=== PATIENT | female | born 1960 | race Caucasian/White ===

== ENCOUNTER 2017-06-17 16:33 | Emergency (ER) | payer BC ==
[2017-06-17 17:19] VITALS: BP 126/71
--- NOTE | 2017-06-17 18:19 | UC ---
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 Patient states feel when close to floor yesterday, no pain but noted increased swelling to right foot last night, increasing throughout the night, no h/o DM. decreased sensation b/l LEs after surgery - History of Current Complaint Hx Obtained From: Patient Hx Last Menstrual Period: n/a Onset/Duration: Sudden Onset, Lasting Days Severity Initially: Moderate Severity Currently: Moderate <Shiloh Barajas - Last Filed: 06/17/17 19:04> <Effie Andrade - Last Filed: 06/18/17 07:39> - History of Current Complaint Chief Complaint: UCLowerExtremity Stated Complaint: SWELLING IN RIGHT FOOT Time Seen by Provider: 06/17/17 18:02 - Allergies/Home Medications Allergies/Adverse Reactions: Allergies Allergy/AdvReac Type Severity Reaction Status Date / Time Mesalamine [From Pentasa] AdvReac Intermediate Vomiting Verified 06/17/17 17:19 Home Medications: Home Medications Baclofen TAB* [Lioresal TAB*] 20 mg PO QID 06/17/17 [History Confirmed 06/17/17 ] Hydrocodone-Acetaminophen [Hydrocodone Bitartrate/AC] 1 tab PO BID 06/17/17 [ History Confirmed 06/17/17] PMH/Surg Hx/FS Hx/Imm Hx Previously Healthy: No - CASHIER OFFICE Damage - Surgical History Surgical History: Yes Surgery Procedure, Year, and Place: L ANKLE FX APR 2012;. HYSTERECTOMY;. TUBAL LIGATION;. CHOLECYSTECTOMY;. T1 -T6 incision for spinal cyst 02/08/2015 at [facility] - Social History Alcohol Use: None Substance Use Type: None Smoking Status (MU): Heavy Every Day Tobacco Smoker Amount Used/How Often: 1 ppd - Immunization History Most Recent Influenza Vaccination: 05/2017 <Shiloh Barajas - Last Filed: 06/17/17 19:04> Review of Systems Neurovascular: Decreased Sensation Musculoskeletal: Arthralgia, Decreased ROM, Edema, Myalgia Is Patient Immunocompromised?: No All Other Systems Reviewed And Are Negative: Yes <Shiloh Barajas - Last Filed: 06/17/17 19:04> Physical Exam Triage Information Reviewed: Yes Appearance: Well-Appearing, No Pain Distress, Well-Nourished, Signs of Trauma Vital Signs: Initial Vital Signs Temp 98 F 06/17/17 17:13 Pulse 66 06/17/17 17:13 Resp 15 06/17/17 17:13 BP 126/71 06/17/17 17:13 Pulse Ox 98 06/17/17 17:13 Vital Signs Reviewed: Yes Musculoskeletal: Positive: Strength Intact, ROM Intact, Edema @ - midfoot to toes moderate swelling, 2+ pitting, tenderness over 2-3 metatarsal dorsal aspect , with tenderness over midfoot plantar region Neurological: Positive: Muscle Tone Normal Psychological Exam: Normal Skin Exam: Normal Skin: Positive: Other <Shiloh Barajas - Last Filed: 06/17/17 19:04> Vital Signs: Initial Vital Signs Temp 98 F 06/17/17 17:13 Pulse 66 06/17/17 17:13 Resp 15 06/17/17 17:13 BP 126/71 06/17/17 17:13 Pulse Ox 98 06/17/17 17:13 <Effie Andrade - Last Filed: 06/18/17 07:39> Lower Extremity Course/Dx - Course Course Of Treatment: radiograph neg, possible stress fracture calc, follow up with ortho - Differential Dx/Diagnosis Differential Diagnosis/HQI/PQRI: Compartment Syndrome, Fracture (Closed), Sprain Provider Diagnoses: Foot sprain, possbile stress fracture <Shiloh Barajas - Last Filed: 06/17/17 19:04> Discharge <Shiloh Barajas - Last Filed: 06/17/17 19:04> <Effie Andrade - Last Filed: 06/18/17 07:39> - Discharge Plan Condition: Good Disposition: HOME Patient Education Materials: Foot Sprain (ED), RICE Therapy (ED) Forms: *Work Release Referrals: Warren Jacobs MD [Medical Doctor] - (within 5 days or at orthopedic of your choice ) Issa Peck MD [Primary Care Provider] - Additional Instructions: - post-op shoe - wear at all times with ambulation - Keep foot elevated with ice as much as possible - Follow up with orthopedics within 5 days - Motrin as needed for pain Attestation Statement User Type: Provider - I was available for consult. This patient was seen by the [facility]. The patient was not presented to, seen by, or examined by me. -Ljj <Effie Andrade - Last Filed: 06/18/17 07:39>
--- NOTE | 2017-06-17 18:50 | RAD ---
Indication: RIGHT ankle and foot pain and swelling; attention second and third metatarsals. No preceding injury. Previous ankle fracture. Comparison: Ankle radiographs of the same date. Technique: AP, lateral, and oblique views RIGHT foot. Report: Normal articular alignment. Negative for fracture or radiographic stigmata of stress reaction. Mild osteophytosis and joint space narrowing at the first metatarsal phalangeal joint. Small os tibiale externum accessory ossicle. Mild nonfocal soft tissue swelling. IMPRESSION: Soft tissue swelling. Negative for fracture or malalignment. Mild osteoarthritis.
--- NOTE | 2017-06-17 18:53 | RAD ---
Indication: Soft tissue swelling at the RIGHT ankle and foot without proceeding injury. Comparison: RIGHT foot radiographs of the same date. Technique: AP, mortise, and lateral views RIGHT ankle. Report: Soft tissue swelling about the ankle without focality. Negative for fracture or malalignment. Negative for significant joint space narrowing. Small plantar fascia origin bone spur. IMPRESSION: Nonspecific soft tissue swelling.
== END 2017-06-17 19:14 | disposition home or self-care (01) ==
LOC: UCCORT 16:33
DX: S93.601A Unspecified sprain of right foot, initial encounter (principal); X58.XXXA Exposure to other specified factors, initial encounter; Y93.9 Activity, unspecified; Y92.9 Unspecified place or not applicable; Z90.49 Acquired absence of other specified parts of digestive tract; Z90.710 Acquired absence of both cervix and uterus; F17.210 Nicotine dependence, cigarettes, uncomplicated
CPT/HCPCS: 99211; G0463

== ENCOUNTER 2018-01-06 15:10 | Emergency (ER) | payer BC ==
[2018-01-06 15:42] VITALS: BP 130/72
--- NOTE | 2018-01-06 16:07 | UC ---
Hand/Wrist HPI - HPI Summary HPI Summary: rolled off sofa at 1:30 this am pain swelling and bruising left ulnar aspect of hand, and pain in left elbow - History Of Current Complaint Chief Complaint: UCTrauma Stated Complaint: FALL/HURT LFT HAND Time Seen by Provider: 01/06/18 15:54 Hx Obtained From: Patient Hx Last Menstrual Period: n/a ?: No Mechanism Of Injury: fall Onset/Duration: Sudden Onset, Lasting Hours Severity Initially: Moderate Severity Currently: Moderate Pain Intensity: 7 Pain Scale Used: 0-10 Numeric Character Of Pain: Aching, Throbbing Aggravating Factor(s): Movement, Lifting Alleviating Factor(s): Ice, OTC Meds Associated Signs And Symptoms: Positive: Swelling, Bruising Related History: Dominant Hand Right - Allergies/Home Medications Allergies/Adverse Reactions: Allergies Allergy/AdvReac Type Severity Reaction Status Date / Time mesalamine Allergy Intermediate vomiting Verified 01/06/18 15:44 and diarrhea PMH/Surg Hx/FS Hx/Imm Hx Previously Healthy: No - spinal cord disorder Endocrine History: Hypothyroidism, Dyslipidemia Respiratory History: COPD - Surgical History Surgical History: Yes Surgery Procedure, Year, and Place: L ANKLE FX APR 2012;. HYSTERECTOMY;. TUBAL LIGATION;. CHOLECYSTECTOMY;. T1 -T6 incision for spinal cyst 02/08/2015 at [facility] - Family History Known Family History: Positive: None - Social History Occupation: Employed Full-time Lives: With Family Alcohol Use: None Substance Use Type: None Smoking Status (MU): Heavy Every Day Tobacco Smoker Amount Used/How Often: 1 ppd Length of Time of Smoking/Using Tobacco: quit spoking 11/2017 - Immunization History Most Recent Influenza Vaccination: 05/2017 Review of Systems Constitutional: Negative Skin: Negative Eyes: Negative ENT: Negative Respiratory: Negative Cardiovascular: Negative Gastrointestinal: Negative Genitourinary: Negative Motor: Negative Neurovascular: Negative Musculoskeletal: Arthralgia - left elbow and hand Neurological: Negative Psychological: Negative Is Patient Immunocompromised?: No All Other Systems Reviewed And Are Negative: Yes Physical Exam Triage Information Reviewed: Yes Appearance: Well-Appearing, Well-Nourished, Pain Distress Vital Signs: Initial Vital Signs Temp 98.0 F 01/06/18 15:37 Pulse 67 01/06/18 15:37 Resp 18 01/06/18 15:37 BP 130/72 01/06/18 15:37 Pulse Ox 94 01/06/18 15:37 Vital Signs Reviewed: Yes Eye Exam: Normal Eyes: Positive: Conjunctiva Clear ENT Exam: Normal ENT: Positive: Normal ENT inspection, Hearing grossly normal. Negative: Nasal congestion, Trismus, Muffled voice, Dental tenderness Neck exam: Normal Neck: Positive: Supple, Nontender Respiratory Exam: Normal Respiratory: Positive: Chest non-tender, No respiratory distress, No accessory muscle use Cardiovascular Exam: Normal Cardiovascular: Positive: RRR, Pulses Normal, Brisk Capillary Refill Musculoskeletal Exam: Other Musculoskeletal: Positive: Strength Limited @ - left hand, ROM Limited @ - left hand, Edema @ - left hand Neurological Exam: Normal Neurological: Positive: Alert, Muscle Tone Normal Psychological Exam: Normal Skin Exam: Normal Hand/Wrist Course/Dx - Course Course Of Treatment: sling ulnar gutter splint, pain med, ice follow with orthopedic MD - Differential Dx/Diagnosis Provider Diagnoses: mild displacemnt of the distal fith MC, left hand fracture Discharge - Sign-Out/Discharge Documenting (check all that apply): Discharge/Admit/Transfer - Discharge Plan Condition: Stable Disposition: HOME Prescriptions: Hydrocodone/Acetaminophen [Hydrocodone-Acetamin 5-325 mg] 1 each PO Q4H PRN #18 tablet MDD 6 PRN Reason: Pain Ibuprofen TAB* [Motrin TAB* 600 MG] 600 mg PO Q6H PRN #30 tab PRN Reason: Pain Patient Education Materials: R.I.C.E. Treatment (ED), Hand Fracture (ED) Referrals: Warren Jacobs MD [Medical Doctor] - 2 Days - Billing Disposition and Condition Condition: STABLE Disposition: HOME
[2018-01-06] MEDS ORDERED: Ibuprofen TAB* 600 MG PO ONE (16:29)
--- NOTE | 2018-01-06 16:50 | RAD ---
HISTORY: Injury, fall COMPARISONS: None VIEWS: 4, Frontal, lateral, and oblique views of the left elbow FINDINGS: BONE DENSITY: Normal. BONES: There is no displaced fracture. JOINTS: There is no arthropathy. There is no posterior supracondylar fat pad to suggest a joint effusion. ALIGNMENT: There is no dislocation. SOFT TISSUES: Unremarkable. OTHER FINDINGS: None. IMPRESSION: NO ACUTE OSSEOUS INJURY. IF SYMPTOMS PERSIST, RECOMMEND REPEAT IMAGING.
--- NOTE | 2018-01-06 16:51 | RAD ---
HISTORY: Injury, fall, left hand pain COMPARISONS: None VIEWS: 4, Frontal, lateral, and oblique views of the left hand FINDINGS: BONE DENSITY: Normal. BONES: There is an angulated fracture of the head of the fifth metacarpal. JOINTS: There is mild osteoarthritis of the interphalangeal joints. ALIGNMENT: There is no dislocation. SOFT TISSUES: Unremarkable. OTHER FINDINGS: None. IMPRESSION: ANGULATED FRACTURE OF THE HEAD OF THE FIFTH METACARPAL
== END 2018-01-06 17:30 | disposition home or self-care (01) ==
LOC: UCCORT 15:10
DX: S62.397A Other fracture of fifth metacarpal bone, left hand, initial encounter for closed fracture (principal); W08.XXXA Fall from other furniture, initial encounter; Y93.9 Activity, unspecified; Y92.9 Unspecified place or not applicable; Z87.891 Personal history of nicotine dependence
CPT/HCPCS: 26600; 99213; A9270-GY; G0463